=== PATIENT | female | born 1985 | race Two or more races ===

== ENCOUNTER 2019-04-07 00:20 | Emergency (ER) | payer SELFPAY ==
[2019-04-07 00:56] VITALS: TEMP 98.1; BMI 28.2
--- NOTE | 2019-04-07 01:10 | PDOC ---
Attending Attestation - Resident Resident Name: Tim Black - ED Attending Attestation I have performed the following: I have examined & evaluated the patient, The case was reviewed & discussed with the resident, I agree w/resident's findings & plan - HPI HPI: 04/07/19 03:12 see resident hpi - Physicial Exam PE: 04/07/19 03:12 agree with resident exam - Medical Decision Making 04/07/19 03:13 33-year-old female with history of hypertension complaining of intermittent headaches and an episode of chest pain, headaches times the last few days On reevaluation patient states she is asymptomatic Work-up has been negative CT scan of the brain was discussed with patient but she states that she no longer has a headache She is neuro intact at this time She did not describe the headache is the worst headache of her life or sudden in onset It has been relieved with Tylenol She has agreed to return should the headache return or should she develop repeat episode of chest pain She will be referred outpatient to primary care
--- NOTE | 2019-04-07 01:10 | PDOC ---
History of Present Illness - General Chief Complaint: Blood Pressure Problem Stated Complaint: ELEVATED BLOOD PRESSURE - History of Present Illness Initial Comments: The pt is a 33F w/ a history of pre-eclampsia (post- 11/2018) and subsequent HTN who presents for concern of HTN w/ chest discomfort tonight that started at approximately [id number]. She states that she began to feel chest pressure at rest, took her blood pressure at home and stated it was 160s/110s. She also reported a gradual onset, b/l EARLY w/o neuro deficits for which she took Tylenol and has since resolved. Currently she endorses improving but present chest pressure. She denies fevers/chills, falls, abdominal pain, N/V/C/D, dysuria, hematuria, or blood in her stool. 04/07/19 01:23 Past History - Past Medical History Allergies/Adverse Reactions: Allergies Allergy/AdvReac Type Severity Reaction Status Date / Time aspirin Allergy Verified 04/07/19 00:24 COPD: No HTN: Yes - Surgical History Cholecystectomy: Yes - Psycho Social/Smoking Cessation Hx Smoking History: Current every day smoker Number of Cigarettes Smoked Daily: 10 Information on smoking cessation initiated: Yes Review of Systems - Review of Systems Able to Perform ROS?: Yes Comments:: GENERAL/CONSTITUTIONAL: No fever or chills. No weakness HEAD, EYES, EARS, NOSE AND THROAT: No change in vision. No change in hearing. No sore throat CARDIOVASCULAR: +chest pressure RESPIRATORY: Denies cough, hemoptysis GASTROINTESTINAL: No nausea, vomiting, diarrhea or constipation GENITOURINARY: No dysuria, frequency, or change in urination MUSCULOSKELETAL: No joint or muscle swelling or pain. No neck or back pain SKIN: No rash NEUROLOGIC: No vertigo, loss of consciousness, or change in strength/sensation ENDOCRINE: No increased thirst. No abnormal weight change HEMATOLOGIC/LYMPHATIC: No anemia, easy bleeding, or history of blood clots ALLERGIC/IMMUNOLOGIC: No hives or skin allergy 04/07/19 01:09 Is the patient limited Korean proficient: No *Physical Exam - Vital Signs Last Vital Signs Temp Pulse Resp BP Pulse Ox 98.1 F 69 18 152/99 99 04/07/19 00:22 04/07/19 00:22 04/07/19 00:22 04/07/19 00:22 04/07/19 00:22 - Physical Exam Comments: GENERAL: Awake, alert, and oriented to person/place/time, in no acute distress HEAD: No signs of trauma, normocephalic, atraumatic EYES: PERRLA, EOMI, sclera anicteric, conjunctiva clear ENT: Hearing grossly normal, nares patent, oropharynx clear without exudates. Moist mucosa LUNGS: No distress, speaks in full sentences, clear to auscultation bilaterally HEART: Regular rate and rhythm, normal S1 and S2, no murmurs appreciated, peripheral pulses normal and equal bilaterally ABDOMEN: Soft, nontender, normoactive bowel sounds. No guarding, no rebound. EXTREMITIES: Normal inspection, Normal range of motion, no edema. No clubbing or cyanosis NEUROLOGICAL: Cranial nerves II through XII grossly intact. Normal speech, normal gait, no focal sensorimotor deficits SKIN: Warm, Dry 04/07/19 01:09 ED Treatment Course - LABORATORY CBC & Chemistry Diagram: 04/07/19 02:00 04/07/19 02:00 Medical Decision Making - Medical Decision Making The pt is a 33F w/ a history of pre-eclampsia (post- 11/2018) and subsequent HTN who presents for concern of HTN w/ chest discomfort tonight. ED Course Lab sent ECG CXR ECG w/ NSR; HR 86; QTc 461; narrow QRS; no axis deviation; no JEYSON 04/07/19 02:02 Labs unremarkable CXR w/o acute pathology, interpreted by ED staff Pt states symptoms resolved at this time Plan for D/C w/ PCP f/u Discharge instructions and return precautions given Patient in agreement and verbalized understanding Dispo: Home 04/07/19 03:10 Discharge - Discharge Information Problems reviewed: Yes Clinical Impression/Diagnosis: HTN (hypertension) Qualifiers: Hypertension type: unspecified Qualified Code(s): I10 - Essential (primary) hypertension Chest pain Qualifiers: Chest pain type: unspecified Qualified Code(s): R07.9 - Chest pain, unspecified Condition: Improved Disposition: HOME - Admission No - Follow up/Referral Referrals: [facility] [place] [Provider Group] Chase Macias MD [Staff Physician] - Sara Em MD [Staff Physician] - Polo Damon [Non Staff, Medical] - - Patient Discharge Instructions Patient Printed Discharge Instructions: DI for High Blood Pressure Additional Instructions: You were seen in the Emergency Department for evaluation of hypertension. Your labs and imaging were unremarkable. Review the handout provided at discharge. Referrals for primary care doctors were given, follow up with one within a week. Return to the Emergency Department if you develop fevers, chest pain, trouble breathing, worsening pain, change in sensation, worsening symptoms, or any new/ concerning symptoms. - Post Discharge Activity Work/Back to School Note: Back to Work
[2019-04-07 02:39] LABS: BASO % 1.2 % (0-2.0); EOS % 6.6 % (0-4.5); HEMATOCRIT 39.3 % (32.4-45.2); HEMOGLOBIN 12.9 GM/dL (10.7-15.3); LYMPH % 26.4 % (8-40); MCH 27.7 pg (25.7-33.7); MCHC 32.9 g/dl (32.0-36.0); MEAN CELL VOLUME 84.3 fl (80-96); MONO % 7.7 % (3.8-10.2); NEUT % 58.1 % (42.8-82.8); PLATELET COUNT 183 K/MM3 (134-434); RBC 4.66 M/mm3 (3.60-5.2); WHITE BLOOD COUNT 7.4 K/mm3 (4.0-10.0)
[2019-04-07 02:56] LABS: ALBUMIN 3.7 g/dl (3.4-5.0); BILIRUBIN,TOTAL 0.3 mg/dL (0.2-1); BLOOD UREA NITROGEN 18.4 mg/dL (7-18); CALCIUM 8.8 mg/dL (8.5-10.1); CREATININE 0.9 mg/dL (0.55-1.3); POTASSIUM 3.8 mmol/L (3.5-5.1); TOT PROT 6.9 g/dl (6.4-8.2)
[2019-04-07 05:07] VITALS: BP 140/89; PULSE 71
[2019-04-07 06:03] LABS: PLATELET ESTIMATE ADEQUATE
--- NOTE | 2019-04-07 16:56 | EKG ---
Test Reason : Blood Pressure : / mmHG Vent. Rate : 086 BPM Atrial Rate : 086 BPM P-R Int : 172 ms QRS Dur : 078 ms QT Int : 386 ms P-R-T Axes : 057 020 032 degrees QTc Int : 461 ms NORMAL SINUS RHYTHM WITH SINUS ARRHYTHMIA POSSIBLE LEFT ATRIAL ENLARGEMENT NO PREVIOUS ECGS AVAILABLE Confirmed by ZHAO AREVALO MD ([id number]) on 04/07/2019 4:56:19 PM Referred By: Confirmed By:ZHAO AREVALO MD
== END 2019-04-07 03:43 | disposition home or self-care (01) ==
LOC: JER 00:20
DX: I10 Essential (primary) hypertension (principal); Z88.6 Allergy status to analgesic agent
CPT/HCPCS: 36415; 71045-TC-FY; 80053; 83735; 84484; 84703; 85025; 93005; 93010; 99283-25